=== PATIENT | male | born 1940 | race Caucasian/White ===

== ENCOUNTER 2023-03-23 00:42 | Emergency (ER) | payer OTHER ==
[~2023-03-23] VITALS: Ht 172.7 cm; Wt 68.0 kg
--- NOTE | 2023-03-23 00:55 | NUR ---
Dr. Aldridge at bedside. MSE in progress.
[2023-03-23] MEDS ORDERED: CEphaleXIN 500 MG CAPSULE PO ONE (01:00)
[2023-03-23] MEDS ORDERED: CEPH500T PO (01:11)
[2023-03-23] MEDS ORDERED: CEphaleXIN 500 MG CAPSULE ONE (01:15)
[2023-03-23 02:35] VITALS: BP 135/67
--- NOTE | 2023-03-23 02:37 | NUR ---
Patient discharged to [facility] in stable condition with APA. A/O x 2. NAD noted. All belongins with patient. Written and verbal after care instructions given. Patient verbalizes understanding of instructions. Stressed follow up or return to ER for worsening s/s.
== END 2023-03-23 02:40 | disposition home or self-care (01) ==
LOC: ER 00:44
DX: S41.112A Laceration without foreign body of left upper arm, initial encounter (principal); Z88.8 Allergy status to other drugs, medicaments and biological substances; Z79.899 Other long term (current) drug therapy; W01.0XXA Fall on same level from slipping, tripping and stumbling without subsequent striking against object, initial encounter; Y93.89 Activity, other specified; Y92.89 Other specified places as the place of occurrence of the external cause; Y99.8 Other external cause status
CPT/HCPCS: 73060; A4663